=== PATIENT | female | born 1975 | race American Indian/Alaskan Native ===

== ENCOUNTER 2017-05-13 10:00 | Emergency (ER) | payer BC, OTHER ==
[2017-05-13] MEDS ORDERED: Oxycodone/Acetaminophen 5/325 mg Tab PO STA (10:33)
--- NOTE | 2017-05-13 10:33 | ED PDOC ---
Arrival/HPI - General Chief Complaint: Lower Extremity Problem/Injury Time Seen by Provider: 05/13/17 10:15 Historian: Patient - History of Present Illness Narrative History of Present Illness (Text): 05/13/17 10:15 42 y/o female, no significant pmyh, nkda, c/o lt. foot 1st great toe pain x 2 months. Pt. stated that she has been tested for the serum gout level which were negative by her own pmd, been taking advil, more painful when wearing tight shoe, no fever or chills, no headache or night sweat, no dizziness, no change in vision, no palpitation, no rash, no other medical or psychological complaints. Past Medical History - Provider Review Nursing Documentation Reviewed: Yes - Infectious Disease Hx of Infectious Diseases: None - Reproductive Menopause: No - Hematological/Oncological Hx Anemia: Yes - Psychiatric Hx Substance Use: No - Surgical History Other/Comment: fibroid surgery - Anesthesia Hx Anesthesia: No Family/Social History - Physician Review Nursing Documentation Reviewed: Yes Family/Social History: Unknown Family HX Smoking Status: Unknown If Ever Smoked Hx Alcohol Use: No Hx Substance Use: No Allergies/Home Meds Allergies/Adverse Reactions: Allergies No Known Allergies Allergy (Verified 05/13/17 10:25) Review of Systems - Review of Systems Constitutional: absent: Fatigue, Fevers Eyes: absent: Vision Changes ENT: absent: Hearing Changes Respiratory: absent: SOB, Cough, Sputum Cardiovascular: absent: Chest Pain Gastrointestinal: absent: Abdominal Pain, Nausea, Vomiting Musculoskeletal: Arthralgias. absent: Back Pain, Neck Pain, Joint Swelling, Myalgias Neurological: absent: Headache, Dizziness Psychiatric: absent: Anxiety, Depression, Suicidal Ideation Physical Exam Vital Signs Reviewed: Yes Vital Signs Temp Pulse Resp BP Pulse Ox 05/13/17 10:05 98.7 F 89 18 122/75 99 Temperature: Afebrile Blood Pressure: Normal Pulse: Regular Respiratory Rate: Normal Appearance: Positive for: Well-Appearing, Non-Toxic, Comfortable Pain Distress: Severe Mental Status: Positive for: Alert and Oriented X 3 - Systems Exam Head: Present: Atraumatic, Normocephalic Pupils: Present: PERRL Extroacular Muscles: Present: EOMI Conjunctiva: Present: Normal Mouth: Present: Moist Mucous Membranes Neck: Present: Normal Range of Motion Respiratory/Chest: Present: Clear to Auscultation, Good Air Exchange. No: Respiratory Distress, Accessory Muscle Use Cardiovascular: Present: Regular Rate and Rhythm, Normal S1, S2. No: Murmurs Abdomen: Present: Normal Bowel Sounds. No: Tenderness, Distention, Peritoneal Signs Back: Present: Normal Inspection Upper Extremity: Present: Normal Inspection. No: Cyanosis, Edema Lower Extremity: Present: Normal Inspection, Other (Lt. foot: there is visible bunions with +ttp on the flexor plantar surface region of the 1st metatarsal joint, no erythematous, no cellulitis or streaking, no ulcers, FROM without limitation, negative pepe and martinez signs, sensation intact, motor 5/5, + DPPT pulses, capillary refill, 2 seconds, neurovascular intact. ). No: Edema Neurological: Present: GCS=15, Speech Normal, Memory Normal Skin: Present: Warm, Dry, Normal Color. No: Rashes Psychiatric: Present: Alert, Oriented x 3, Normal Insight, Normal Concentration Medical Decision Making ED Course and Treatment: 05/13/17 10:20 -lt. foot xray -indocin and percocet -urine hcg negative -Discharge home with indomethacin, crutches, copy of the xray CD, avoid wearing tight sneakers or shoe as this will trigger the pain, follow up with your own pmd and bagging salvager within 2 days, return to the ER for any new or worsening signs or symptoms. - RAD Interpretation Radiology Orders: 05/13/17 10:33 FOOT LEFT 3 VIEWS ROUTINE [RAD] Stat COMPARISON: None. FINDINGS: BONES: No acute fracture. Bunion. JOINTS: Mild hallux valgus. Remaining joint spaces and articular surfaces are preserved. SOFT TISSUES: Normal. OTHER FINDINGS: None. IMPRESSION: Bunion and mild hallux valgus. Liquid Loader: Radiologist - Medication Orders Current Medication Orders: Discontinued Medications Indomethacin (Indocin) 50 mg PO STAT STA Stop: 05/13/17 10:36 Oxycodone/Acetaminophen (Percocet 5/325 Mg Tab) 1 tab PO STAT STA Stop: 05/13/17 10:34 - PA / ARTIST'S MODEL / Resident Statement / has reviewed & agrees with the documentation as recorded. Disposition/Present on Arrival - Present on Arrival Any Indicators Present on Arrival: No History of DVT/PE: No History of Uncontrolled Diabetes: No Urinary Catheter: No History of Decub. Ulcer: No History Surgical Site Infection Following: None - Disposition Have Diagnosis and Disposition been Completed?: Yes Diagnosis: Bunion of great toe, Tendinitis Disposition: HOME/ ROUTINE Disposition Time: 10:27 Patient Plan: Discharge Patient Problems: Current Active Problems Problem Status Onset Bunion of great toe Acute Tendinitis Acute Condition: IMPROVED Additional Instructions: Discharge home with indomethacin, crutches, copy of the xray CD, avoid wearing tight sneakers or shoe as this will trigger the pain, follow up with your own pmd and bagging salvager within 2 days, return to the ER for any new or worsening signs or symptoms. Prescriptions: Indomethacin [Indocin] 50 mg PO TID PRN #30 cap PRN Reason: Other Referrals: Alex Anton DPM [Staff Provider] - Follow up with primary Forms: WORK NOTE
--- NOTE | 2017-05-13 11:06 | RAD ---
PROCEDURE: Left Foot Radiographs. HISTORY: lt. foot pain 1st metatarsal joint COMPARISON: None. FINDINGS: BONES: No acute fracture. Bunion. JOINTS: Mild hallux valgus. Remaining joint spaces and articular surfaces are preserved. SOFT TISSUES: Normal. OTHER FINDINGS: None. IMPRESSION: Bunion and mild hallux valgus.
[2017-05-13 11:13] VITALS: BP 122/75; PULSE 89; RESP 18; TEMP 98.7; O2SAT 99
== END 2017-05-13 11:26 | disposition home or self-care (01) ==
LOC: ED 10:00
DX: M21.612 Bunion of left foot (principal); M77.8 Other enthesopathies, not elsewhere classified